=== PATIENT | female | born 1955 | race Caucasian/White ===

== ENCOUNTER 2019-11-10 13:16 | Outpatient (CLI) | payer OTHER, SELFPAY ==
--- NOTE | ~2019-11-10 | DEXA_ITS ---
BMD(1) Young-Adult(2) Age-Matched(3) Region (g/cm2) T-score Z-score WHO Classification L2 0.992 -1.8 -0.7 Osteopenia L3 0.954 -2.1 -1.0 Osteopenia L4 1.131 -0.7 0.4 Normal Trend: L1-L4 Change vs Change vs Measured Age BMD(1) Baseline Previous Date (years) (g/cm2) (%) (%) 1 - Statistically 68% of repeat scans fall within 1SD (+- 0.010 g/cm2 for AP Spine L1-L4) 2 - [place] (Combined NHANES (ages 20-30) / [place] (ages 20-40)) AP Spine Reference Population (v112) 3 - Matched for Age, Weight (females 25-100 kg), Ethnic Printed: 11/10/2019 1:53:18 PM (13.60)76:3.00:50.00:12.0 0.00:10.56 0.60x1.05 26.0:%Fat=47.8% 0.00:0.00 0.00:0.00 Filename: [id number] Scan Mode: Standard;OneScan 37.0 LocalView [id number] BMD(1) Young-Adult(2) Age-Matched(3) Region (g/cm2) T-score Z-score WHO Classification Neck 0.806 -1.7 -0.5 Osteopenia Total 0.854 -1.2 -0.4 Osteopenia Hip [place] Length Comparison (mm) BERNIE chart results unavailable Trend: Total Change vs Change vs Measured Age BMD(1) Baseline Previous Date (years) (g/cm2) (%) (%) 11/10/2019 64.8 0.854 baseline - 1 - Statistically 68% of repeat scans fall within 1SD (+- 0.012 g/cm2 for Left Femur Total) 2 - [place] (Combined NHANES (ages 20-30) / [place] (ages 20-40)) Femur Reference Population (v112) 3 - Matched for Age, Weight (females 25-100 kg), Ethnic 11 - World Health Organization - Definition of Osteoporosis and Osteopenia for Women: Normal = T-score at or above -1.0 SD; Osteopenia = T-score between -1.0 and -2.5 SD; Osteoporosis = T-score at or below -2.5 SD; (WHO definitions only apply when a young healthy Women reference database is used to determine T-scores.) Printed: 11/10/2019 1:53:18 PM (13.60)76:3.00:50.00:12.0 0.00:12.12 0.60x1.05 18.9:%Fat=34.0% 0.00:0.00 0.00:0.00 Neck Angle (deg)= 63 Filename: [id number] Scan Mode: Standard 37.0 uGy Sanghvi [id number] 17 - The 10-year probability of fracture may be lower than reported if the patient has received treatment. 18 - Major Osteoporotic Fracture: Clinical Spine, Forearm, Hip or Shoulder Printed: 11/10/2019 1:53:20 PM (13.60)76:3.00:50.00:12.0 0.00:12.12 0.60x1.05 18.9:%Fat=34.0% 0.00:0.00 0.00:0.00 Neck Angle (deg)= 63 Filename: [id number] Scan Mode: Standard 37.0 ?Gy FRAX v3.1 Sanghvi [id number] Dear Meir Ruth, Your patient Antonia Chavez completed a BMD test on 11/10/2019 using the Sanghvi DXA System (analysis version: 13.60) manufactured by [employer]. The following summarizes the results of our evaluation. PATIENT BIOGRAPHICAL: Name: Antonia Chavez Date: 1955 Height: 63.0 in. Gender: Female Exam Date: 11/10/2019 Weight: 176.0 lbs. Indications: Back Pain, Caffeinated drinks, , Family Hist.(Parent hip fracture), Hip Pain, History of Fracture (Adult), Family Hist. (Parent hip fracture) Fractures: Wrist Treatments: Calcium, Multivitamin, Vitamin D ASSESSMENT: The BMD measured at Femur Neck is 0.806 g/cm2 with a T-score of -1.7. This patient is considered osteopenic according to World Health Organiz
== END 2019-11-10 13:17 | disposition home or self-care (01) ==
LOC: CHSIMG 13:23
PROVIDERS: PCP Family Medicine; Visit Provider Family Medicine
DX: M85.80 Other specified disorders of bone density and structure, unspecified site (principal); Z78.0 Asymptomatic menopausal state
CPT/HCPCS: 77080

== ENCOUNTER 2021-12-26 09:59 | Outpatient (CLI) | payer MEDICARE, OTHER, SELFPAY ==
--- NOTE | ~2021-12-26 | XR_ITS ---
EXAM: XR lumbar spine min 4V DATE: 12/26/2021 10:34 HISTORY: back pain, TINGLING IN LEGS. KEELY. DR LUICO. FLEX/EX . COMPARISON: None available. FINDINGS: Cholecystectomy clips. Partially visualized right hip arthroplasty. 5 nonrib-bearing lumbar -type vertebral bodies. Pedicles intact. Normal vertebral body alignment. Concave endplate deformitie s as can be seen with osteoporosis. Multilevel disc space narrowing, severe at L5-S1 and mild at all remaining levels. Flowing ossification of the anterior longitudinal ligament inferior thoracic spine. Multilevel facet sclerosis and hypertrophy. Abdominal aortic calcification without evident aneurysm. No fracture or dislocation. IMPRESSION: Multilevel degenerative disc disease, severe at L5-S1. No dynamic listhesis. Multilevel f acet arthropathy. Reviewed, dictated and finalized at location K. IMPRESSION: Multilevel degenerative disc disease, severe at L5-S1. No dynamic l isthesis. Multilevel facet arthropathy.
== END 2021-12-26 10:00 | disposition home or self-care (01) ==
PROVIDERS: PCP Family Medicine; Visit Provider Neurological Surgery
DX: M47.817 Spondylosis without myelopathy or radiculopathy, lumbosacral region (principal); R20.2 Paresthesia of skin; I70.0 Atherosclerosis of aorta
CPT/HCPCS: 72110

== ENCOUNTER → 2022-01-12 09:19 | Outpatient (CLI) | payer MEDICARE, OTHER, SELFPAY ==
--- NOTE | ~2022-01-12 | MR_ITS ---
EXAMINATION: MR lumbar spine wo con DATE: 01/12/2022 10:31 INDICATION: Lumbar radiculopathy TECHNIQUE: Magnetic resonance imaging (MRI) of the lumbar spine was performed without intravenous con trast. Sequences included sagittal T2-weighted FSE, sagittal T2-weighted FS FSE, sagittal T1-weighted FSE, and axial T2-weighted FSE. COMPARISON: MRI dated 03/27/2021 FINDINGS: 4 mm retrolisthesis L5 on S1. Postoperative change of prior partial L5 laminectomy. Vertebral body he ights are normal. No significant change in a couple lesions in the L2 and L3 vertebral bodies which d emonstrate slightly lower attenuation than the surrounding marrow fat but still greater T1 signal int ensity than the discs and which saturates on T2 fat-saturated images suggests this represents focal r ed marrow. Mild fibrofatty degenerative endplate changes at the few of the lower lumbar vertebral bod ies . Moderate to severe disc height loss at L5-S1. Mild disc height loss at L1-L2 and L4-L5. The con us medullaris terminates at L1-L2. There is normal signal in the caudal spinal cord. Small region of cortical scarring at the right kidney with unchanged 7 mm T2 hyperintense right renal cyst. The follo wing disc levels are specifically discussed: T12-L1: Disc is minimally bulging. There is mild bilateral facet joint osteoarthritis. There is no ne ural foraminal stenosis. There is no central canal stenosis. L1-L2: Disc is mildly bulging. There is mild bilateral facet joint osteoarthritis. There is no neural foraminal stenosis. There is no central canal stenosis. L2-L3: The disc does not extend beyond the endplate margin. There is mild bilateral facet joint osteo arthritis. There is no neural foraminal stenosis. There is no central canal stenosis. L3-L4: Disc is mildly bulging with superimposed left foraminal zone disc protrusion. There is hypertr ophy of the ligamentum flavum. There is moderate left and moderate to severe right facet joint osteoa rthritis. There is old right and moderate left neural foraminal stenosis. There is mild central canal stenosis. L4-L5: Disc is bulging. There appears to been prior decompression at this level with resection of the ligamentum flavum and posterior epidural fat. There is moderate left and severe right facet joint os teoarthritis. There is moderate bilateral, right greater than left neural foraminal stenosis. There i s mild central canal stenosis. L5-S1: Disc is bulging with right foraminal zone annular fissure and disc extrusion with disc materia l extending a few millimeters cephalad and caudal to the level of the endplates. Posterior decompress ion with partial L5 laminectomy and resection of the right ligamentum flavum. There is moderate right and moderate to severe left facet joint osteoarthritis. There is right and mild to moderate left abdelrahman ral foraminal stenosis. There is mild central canal stenosis. IMPRESSION: 1. Moderate to severe lower lumbar spondylosis with change of prior posterior decompression at L4-L5 and L5-S1. Reviewed, dictated and finalized at location A. IMPRESSION: 1. Moderate to severe lower lumbar spondylosis with change of prior posterior d ecompression at L4-L5 and L5-S1.
== END ==
PROVIDERS: PCP Family Medicine
DX: M47.27 Other spondylosis with radiculopathy, lumbosacral region (principal); M48.07 Spinal stenosis, lumbosacral region
CPT/HCPCS: 72148

== ENCOUNTER 2022-03-16 08:28 | Outpatient (CLI) | payer MEDICARE, OTHER, SELFPAY ==
--- NOTE | ~2022-03-16 | DEXA_ITS ---
Bone Density Report Name: AFSHIN CAGLE Age: 66 Sex: Female Ethnicity: White Date of : 1955 Indication: postmenopausal; screening for osteoporosis; parental hip fracture; height loss; Referring Provider: LUCHO JEREZ Study: Bone densitometry was performed. Exam Date: March 16, 2022 Accession number: [id number] Bone Density: Region BMD T-score Z-score Classification AP Spine(L1-L4) 0.883 -1.5 0.4 Osteopenia Femoral Neck (Left) 0.596 -2.3 -0.7 Osteopenia Total Hip (Left) 0.706 -1.9 -0.6 Osteopenia World Health Organization criteria for BMD impression classify patients as: Normal (T-score at or above -1.0), Osteopenia (T-score between -1.0 and -2.5), or Osteoporosis (T-score at or below -2.5). 10-year Fracture Risk(1): Major Osteoporotic Fracture 20% Hip Fracture 3.1% Reported Risk Factors: [place] (), Neck BMD=0.596, BMI=30.8, parental fracture (1) FRAX(R) Version 3.08. Fracture probability calculated for an untreated patient. Fracture probability may be lower if the patient has received treatment. Clinical Information Provided by Patient: Parent has had a hip fracture Has used the following medications: Vitamin D, Calcium Patient maximum height was 64 Menopause Age: 41 No regular weight bearing exercise Drinks caffeinated beverages Onset of menses at age 12 Number of children 2 Impression: The patient has low bone mass, based on the Left Femoral Neck T-score. The patient has an estimated ten-year risk of hip fracture of 3.1% and an estimated ten-year risk of major fracture of 20%, based on the WHO FRAX algorithm. The patient has risk factors, including: parental hip fracture. Discussion: BONE DENSITY IS LOW AT ONE OR MORE SKELETAL SITES. THE PATIENT'S BMD AND CLINICAL RISK FACTORS CONTRIBUTE TO THIS PATIENT'S HIGH RISK OF FRACTURE. This patient's lowest T-score is low at one or more skeletal sites. It meets the World Health Organization's (WHO) criteria for ?low bone mass? (T-score between -1.0 and -2.5). The patient's 10-year risk of hip fracture and 10 year risk of a major osteoporotic fracture as calculated by FRAX exceeds the threshold where pharmacological therapy is recommended by the National Osteoporosis Foundation (NOF). However, all treatment decisions require clinical judgment and consideration of individual patient factors, including patient preferences, comorbidities, previous drug use, risk factors not captured in the FRAX model (e.g., frailty, falls, vitamin D deficiency, increased bone turnover, interval significant decline in bone density) and possible under or overestimation of fracture risk by FRAX. The patient should follow a healthful lifestyle (good nutrition with adequate calcium and vitamin D, and appropriate weight-bearing exercise). Follow-Up: Consider a repeat BMD and Vertebral Frac
== END 2022-03-16 08:29 | disposition home or self-care (01) ==
LOC: CHSIMG 08:30
PROVIDERS: PCP Family Medicine; Visit Provider Family Medicine
DX: Z78.0 Asymptomatic menopausal state (principal)
CPT/HCPCS: 77080

== ENCOUNTER 2022-10-15 20:22 | Emergency (ER) | payer MEDICARE, SELFPAY ==
--- NOTE | ~2022-10-15 | XR_ITS ---
EXAM: XR ankle RT min 3V, XR foot RT min 3V DATE: 10/15/2022 20:48 HISTORY: Right ankle pain, MEDIAL. STRIKING INJURY. . COMPARISON: None. FINDINGS: Normal mineralization. No fracture or dislocation. No lytic or blastic lesion. Mild midfoo t and tibiotalar degenerative change. Moderate Achilles and plantar enthesopathy. No erosion or perio steal change. Soft tissues within normal limits. IMPRESSION: No acute osseous finding in the right ankle or right foot. Reviewed, dictated and finalized at location K. IMPRESSION: No acute osseous finding in the right ankle or right foot.
[2022-10-15 20:23] VITALS: BP 102/65; PULSE 68; RESP 18; TEMP 36.6; O2SAT 98
[2022-10-15] MEDS: HYDROcodone/acetaminophen (*CRX) 5-325 MG TABLET 1 TAB PO (21:00)
--- NOTE | 2022-10-15 21:54 | ED.GENADULT ---
HPI - General Adult General Chief complaint: Extremity Injury, Lower Stated complaint: R Foot Injury Source: patient Mode of arrival: ambulatory Limitations: no limitations History of Present Illness HPI narrative: patient dropped a 24 x 30 in piece of wood on the top of her right foot complains of pain there and her ankle with bruising and swelling of the dorsum of her foot. . She has happened just prior to admission. She complains of not Deyanira put weight on the foot. Complains of a 10/10 pain with little tingling over the dorsal aspect of her foot. She says it hurts to move it. Denies any other injuries. Otherwise she is eating drinking stooling and voiding fine without any fever coughs shortness of breath sore throat runny nose rash or itching bleeding or bruising other than her foot lumps or bumps or swelling other than her right foot. Hurts to walk denies any problems hearing or seeing or talking. Denies any other complaints or any other pain. Denies any other injuries. Related Data Home Medications Medication Instructions Recorded Confirmed atorvastatin 40 mg tablet 40 mg PO DAILY 12/23/21 03/24/22 enalapril maleate 10 mg tablet 10 mg PO DAILY 12/23/21 03/24/22 hydrochlorothiazide 25 mg tablet 25 mg PO DAILY 12/23/21 03/24/22 naproxen 500 mg tablet 500 mg PO BID 12/23/21 03/24/22 sertraline 100 mg tablet 100 mg PO DAILY 12/23/21 03/24/22 Allergies Allergy/AdvReac Type Severity Reaction Status Date / Time nitrofurantoin Allergy Unknown Verified 10/15/22 20:25 [From Macrobid] Sulfa (Sulfonamide Allergy Hives Verified 03/24/22 09:02 Antibiotics) Review of Systems Review of Systems: All systems reviewed & are unremarkable except as noted in HPI and below PMFSH Past Medical History Medical History Anxiety Arthritis Depression H/O nephrolithotomy with removal of calculi High blood pressure High cholesterol Kidney stones Premature osteoporosis Surgical History Surgical History H/O neck surgery 2003 H/O shoulder replacement History of hip replacement Hx of cholecystectomy Previous back surgery 1999 Family History Family History Father Carcinoma of colon Heart disease Cerebrovascular accident Sibling Carcinoma of colon Mother Osteoporosis Thyroid disorder Dementia Social History Social History Smoking status: Never smoker Alcohol intake: current Alcohol use details: Rarely Substance use: never Exam Narrative: white female elderly mild distress complaining of right foot pain. Right lower extremity right hip and knee is normal. Right calf and cochran is nontender. Right ankle is mild tenderness laterally right foot is tender and bruised and mildly swollen on the dorsal central aspect of the dorsum of her foot. Is moderately tender. DP and PT pulses are +2 her ankle has full range of motion but hurts when she ranges of motion she has no tenderness in her toes. She is unable to put any weight on that foot. Course Vital Signs Vital signs: Vital Signs Temperature 36.6 C 10/15/22 20:23 Pulse Rate 68 10/15/22 20:23 Respiratory Rate 18 10/15/22 20:23 Blood Pressure 102/65 10/15/22 20:23 Pulse Oximetry 98 10/15/22 20:23 Oxygen Delivery Room Air 10/15/22 20:23 Temperature 36.6 C 10/15/22 20:23 Pulse Rate 68 10/15/22 20:23 Respiratory Rate 18 10/15/22 20:23 Blood Pressure 102/65 10/15/22 20:23 Pulse Oximetry 98 10/15/22 20:23 Oxygen Delivery Room Air 10/15/22 20:23 Medical Decision Making [facility] Narrative Medical decision making narrative: Patient was placed in room 5 history and physical was performed x-ray of her right foot and ankle was done which showed no fracture or dislocati
[2022-10-15] MEDS: KETOROLAC 30 MG/ML VIAL (*BKC) IM (22:23)
== END 2022-10-15 22:50 | disposition home or self-care (01) ==
PROVIDERS: Emergency Provider Emergency Medicine; PCP Family Medicine
DX: S90.31XA Contusion of right foot, initial encounter (principal); F41.9 Anxiety disorder, unspecified; F32.A Depression, unspecified; W20.8XXA Other cause of strike by thrown, projected or falling object, initial encounter
CPT/HCPCS: 73610; 73630; 96372; 99283; A9270; J1885; L2112

== ENCOUNTER 2023-08-07 08:17 | Outpatient (CLI) | payer MEDICARE, OTHER, SELFPAY ==
--- NOTE | 2023-08-07 08:36 | ECG_ITS ---
SEE SCANNED COPY FOR CONFIRMED REPORT. MTDD
[2023-08-07 09:12] LABS: Hematocrit 43.8 % (37.0-47.0); Hemoglobin 14.1 g/dL (12.0-15.0); Mean Corpuscular HGB Conc 32.2 g/dl (32-36); Mean Corpuscular Hemoglobin 30.4 pg (26-34); Mean Corpuscular Volume 94.4 fl (80-100); Mean Platelet Volume 9.6 fl (7.4-10.4); Platelet Count Result 257 k/mm3 (150-375); Red Blood Count 4.64 M/mm3 (4.2-5.4); Red Cell Distribution Width 12.5 % (11.5-14.5); White Blood Count 5.4 K/mm3 (4.5-10.0)
[2023-08-07 09:16] LABS: Appearance Urine Clear (Clear); Bacteria Urine None Seen /hpf; Bilirubin Urine Negative (Negative); Blood Urine Negative (Negative); Color Urine Yellow (Yellow); Glucose Urine UA Negative (Negative); Ketones Urine Negative (Negative); Leukocyte Esterase Ur 1+ LEU/UL (Negative); Nitrate Urine Negative (Negative); Non Pathogenic Casts 0-2; Protein Urine Negative (Negative); RBC Urine 0-2 /hpf (0-2); Specific Grav Ur 1.007 (1.001-1.035); Squamous Epithelial Cell Urine None Seen /hpf (Few); Urobilinogen Urine 0.2 mg/dL (<2.0)
[2023-08-07 09:23] LABS: Anion Gap 6 mmol/L (4-12); Blood Urea Nitrogen 17 mg/dL (7-17); Calcium 10.3 mg/dL (8.4-10.2); Carbon Dioxide 31 mmol/L (22-30); Chloride 105 mmol/L (98-107); Estimated Glomerular Filt Rate > 60; Glucose 95 mg/dL (65-110); INR 0.9; Potassium 3.9 mmol/L (3.4-5.0); Prothrombin Time 12.7 Seconds (11.1-14.7); Sodium 142 mmol/L (137-145)
[2023-08-07 09:29] LABS: Add Urine Microscopic? YES
== END 2023-08-07 08:18 | disposition home or self-care (01) ==
LOC: ANHSURGERY 08:25
PROVIDERS: PCP Family Medicine; Visit Provider Neurological Surgery
DX: Z01.818 Encounter for other preprocedural examination (principal); I10 Essential (primary) hypertension; M96.1 Postlaminectomy syndrome, not elsewhere classified
CPT/HCPCS: 36415; 80048; 81001; 85027; 85610; 85730; 87086; 87088; 93005

== ENCOUNTER 2023-08-08 06:10 | Day surgery (SDC) | payer MEDICARE, OTHER, SELFPAY ==
[2023-08-06 11:09] VITALS: BMI 29.1
--- NOTE | 2023-08-06 11:41 | PC.NURSE ---
Report to the Outpatient Waiting Room, entrance under the green pavilion located off [facility], at time __6:00AM on date __08/08/23 . Planned Procedure Time: ___7:30AM . Time changes happen often and if your time is changed the preop area will call you the afternoon before. - You and your visitor will be asked to self-screen and do not enter if you have any COVID symptoms. - A mask is optional within the hospital at this time. Patients may have clear liquids (water, carbonated beverages, clear teas, apple juice) until 3 hours prior to surgery with a maximum of 20 ounces. - No food from midnight until time of surgery. Take the following medications with a SIP of water the morning of surgery: ____SERTRALINE DO NOT STOP ANY OF YOUR OTHER PRESCRIPTION MEDICATIONS PRIOR TO SURGERY ?EXCEPT THE FOLLOWING Medications to discontinue per physician HOLD ALL VITAMINS/SUPPLEMENTS STARTING NOW(08/06/23) PER ANESTHESIA. Please no make-up, nail indonesian, hairspray, perfume, deodorant, or body powder the day of surgery. No jewelry (including any body piercings) or valuables the day of surgery, leave them at home. Please take a shower or bath the night before, or the morning of, surgery with an antibacterial soap. Wear comfortable, loose fitting clothing. - Jewelry must be removed prior to entering the operating room. Rings and piercings that are not removed may be cut off. - The hospital will not accept responsibility for valuables. - Please leave all valuables, including medications, at home the day of surgery. If you are going home after surgery, a licensed road train driver must drive you home. - NO public transportation without another adult if you receive anesthesia. - We recommend that an adult stay with you for 24 hours following discharge. - We also recommend that you do not drive, make important decision, drink alcoholic beverages, or take any drugs that were not prescribed by your health care provider for at least 24 hours after your discharge time. Follow any additional instructions given to you from your surgeon. If you or anyone in your household have experienced Covid symptoms in the past week, please notify your surgeon or the nurse liaison at the phone number below for possible testing. Telephone instructions given to ____PATIENT and asked if any additional questions and then verbalized understanding. Patient advised to call surgeon office or pre surgery nurse liaison [phone] if any additional questions.
[2023-08-08] VITALS (8 sets, daily range): BP systolic 117–136; BP diastolic 52–64; PULSE 69–86; RESP 12–19; TEMP 36.3; O2SAT 93–100
--- NOTE | ~2023-08-08 | XR_ITS ---
XR fluoroscopy no charge DATE: 08/08/2023 15:00 INDICATION: T9 laminectomy for spinal stimulator replacement TECHNIQUE: Single spot C-arm exposure of lower thoracic spine 29.9 seconds fluoroscopy time 0.2030 mGym2 Total DAP COMPARISON: None FINDINGS: Neurostimulator leads overlie the thoracic spinal canal. IMPRESSION: Neurostimulator leads overlie thoracic spinal canal Reviewed, dictated and finalized at [facility]. Reviewed, dictated and finalized at [facility].
[2023-08-08] MEDS: LACTATED RINGERS 1,000 ML 30 ML IV CONT ×2 (06:50→09:32)
--- NOTE | 2023-08-08 07:14 | WPDANESEPPF ---
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 Patient Data Age: 67 Gender: F Height: 1.63 m Weight: 77 kg Allergies Allergy/AdvReac Type Severity Reaction Status Date / Time nitrofurantoin Allergy Rash Verified 08/06/23 11:02 [From Macrobid] Sulfa (Sulfonamide Allergy Hives Verified 08/06/23 11:02 Antibiotics) Home Medications Medication Instructions Recorded Confirmed Type atorvastatin 40 mg tablet 40 mg PO DAILY 12/23/21 08/06/23 History enalapril maleate 10 mg tablet 10 mg PO DAILY 12/23/21 08/06/23 History hydrochlorothiazide 25 mg tablet 25 mg PO DAILY 12/23/21 08/06/23 History sertraline 100 mg tablet 100 mg PO QAM 12/23/21 08/06/23 History Powder Turmeric See Rx Instructions .Route .COMPLEX 08/06/23 08/06/23 History acetaminophen 500 mg tablet 1,000 mg PO Q6H PRN Pain 08/06/23 08/06/23 History (Acetaminophen Extra Strength) calcium carbonate 600 mg-vitamin 1 tablet PO DAILY 08/06/23 08/06/23 History D3 20 mcg (800 unit) chewable tablet (Caltrate 600 plus D) meclizine 25 mg tablet 25 mg PO BID PRN Dizziness Or 08/06/23 08/06/23 History Vertigo naproxen 500 mg tablet 500 mg PO BID PRN Pain 08/06/23 08/06/23 History pantoprazole 40 mg tablet,delayed 40 mg PO DAILY 08/06/23 08/06/23 History release Patient hx anesthesia problems: post op nausea/vomiting Family hx anesthesia problems: none Results Review: All pre-operative results and documents have been reviewed as part of the pre-operative evaluation. [facility] Past Medical History Medical History Anxiety Arthritis Depression H/O nephrolithotomy with removal of calculi High blood pressure High cholesterol Kidney stones Premature osteoporosis Surgical History Surgical History H/O neck surgery 2003 H/O shoulder replacement History of hip replacement Hx of cholecystectomy Previous back surgery 1999 Family History Family History Father Carcinoma of colon Heart disease Cerebrovascular accident Sibling Carcinoma of colon Mother Osteoporosis Thyroid disorder Dementia Social History Social History Smoking status: Never smoker Alcohol intake: current Alcohol use details: Rarely Substance use: never Substance use type: does not use Do You Feel Safe in your Home?: Yes Lack of Transportation: No Lack of Food: Never True Current Housing: I Have Housing Concerned About Future Housing: No Difficulty Paying Gas/Electric Bills: No Difficulty Paying for Meds: No Currently Unemployed: No Education: High School Diploma/GED Difficulty w/ Childcare or Family Care: No Living arrangements: with family Additional living arrangements comments: HUSB Spiritual care concerns: No Anes - Eval Final PreProcedure Day of Procedure 08/08/23 07:14 Patient weight: normal Heart: regular rate and rhythm Lungs: clear to auscultation Airway: Mallampati scale class II Neurological: alert and oriented Last oral intake: >/= 8 hours ASA classification: III Emergent: no Anesthetic plan: proceed Anesthesia type and monitoring: general ETT and standard monitoring Results Review: All pre-operative results and documents have been reviewed as part of the pre-operative evaluation. Informed Consent: The patient's anesthetic plan and its attendant risks and benefits were discussed with the patient/family/POA. Questions were solicited and answers provided to the satisfaction of the patient/family/POA.
--- NOTE | 2023-08-08 07:18 | WPDHPUPDATE1 ---
History and Physical Update Update Date/Time: 08/08/23 07:18 History and Physical has been reviewed, including an updated exam of the patient. There are NO changes in the patient's condition. Risks, benefits, and alternatives have been discussed and questions answered. Patient agrees to proceed with procedure.
[2023-08-08] MEDS: SCOPOLAMINE 1 MG PATCH 1 PATCH TRANSDERM (07:25)
[2023-08-08] MEDS: ceFAZolin 2 GM/D5W 50 ML 2 GM/50 ML BAG IVPB (07:34)
[2023-08-08] MEDS: BUPIVACAINE/EPINEPHRINE 0.5% 10 ML VIAL 30 ML INFILTRATE (08:14)
[2023-08-08] MEDS: VANCOMYCIN HCL 1,000 MG VIAL 500 MG TOPICAL (08:15)
--- NOTE | 2023-08-08 09:17 | PM.OP ---
Procedure Note - Brief Procedure Note - Brief Date of procedure: 08/08/23 failed back surgical syndrome Post-op diagnosis: Same Procedure performed: T9 laminotomy for placement of spinal cord stimulator Surgeon: Thais Navas MD Anesthesia: GETA Findings: Placement across T7 and T8 Estimated blood loss (mL): 25 Drains: No Packing: No Pathology: None sent Complications: None Condition: Stable Disposition: PACU
--- NOTE | 2023-08-08 09:19 | P.OP_ITS ---
Procedure Note - Detailed Date of Procedure 08/08/23 Pre-op Diagnosis failed back surgical syndrome Post-op Diagnosis Same Procedure Performed 1. T9 laminotomy for placement of spinal cord stimulator 2. Use of C-arm for fluoroscopy Surgeon Thais Navas MD [employer] Anesthesia General Indications Ms. Chavez is a 67-year-old female with history of previous L4-5 and L5-S1 laminectomies who has had continued and progressive back and bilateral lower extremity symptoms which have been unresponsive to physical therapy or multiple pain management injections.? She had a recent spinal cord stimulator trial with stimulation across the T8-9 disc space with 70% improvement in her symptoms. She is neurologically intact on physical exam.? MRI thoracic spine does not show significant stenosis that would limit placement of a stimulator. Given her improvement with the trial, I think it is reasonable to proceed with permanent implantation.? I think she is a reasonable candidate for spinal cord stimulator and have offered T9 laminotomy for placement of paddle electrode. We discussed risks including bleeding, pain, infection, weakness, paralysis, spinal cord damage, failure to relieve symptoms, and anesthetic complications. She gave written informed consent to proceed. Description of Procedure The patient was brought to the OR where general anesthesia was induced. The patient was turned prone onto the OR table with Rafael frame. All pressure points were padded. C-arm was used to plan the level of the thoracic incision. A left gluteal incision was also planned for the generator site. The surgical site was prepped and draped in usual sterile fashion. Perioperative antibiotics were given. Local anesthesia was injected into the planned incisions. A 10-blade scalpel was used to open the left gluteal incision. A bovie was used to create a subcutaneous pocket inferiorly. The pocket was packed with a wet Raytec. Next, the thoracic incision was opened with the scalpel, and the soft tissue was dissected with the bovie. The laminae were exposed bilaterally at T9. This was confirmed with the C-arm. A laminotomy was performed at the inferior portion of T9 with the [place], high-speed drill, and edenriseduard. No significant ligamentum flavum was noted at this level. The laminotomy opening was widened laterally. The paddle stimulator was then placed into the epidural space. Xrays confirmed appropriate positioning in line with the desired placement based on the trial. Anchors were placed into the leads which were attached to the muscle. The leads were tunneled to the gluteal incision. A final xray was obtained to ensure stable placement. The leads were connected to the generator which was then placed into the gluteal pocket. The generator was secured with a silk suture. All incisions were irrigated copiously. Hemostasis was ensured in the thoracic incision with the bipolar and Surgiflo. Stimulon beads were placed into both incisions. The fascia was closed with 0 vicryl. The dermis was closed with 2-0 and 3-0 vicryl. The dermis at the generator site was closed with 2-0 vicryl. The skin was closed in both incisions with 4-0 monocryl. Dermabond was then placed. The patient was returned supine, extubated, and transferred to PACU. Billing codes: 40846, 79937 Estimated Blood Loss 25 Drains No Packing No Pathology None sent Complications None Condition Stable Disposition PACU [facility] Billing Surgery - Charge Forward: Surgery Billing
[2023-08-08] MEDS: oxyCODONE HCL (*CRX) 5 MG TAB IR PO (10:40)
== END 2023-08-08 11:17 | disposition home or self-care (01) ==
PROVIDERS: PCP Family Medicine; Visit Provider Neurological Surgery
PROC: (CPT 63005; principal; 2023-08-08 07:30)
DX: M96.1 Postlaminectomy syndrome, not elsewhere classified (principal); I10 Essential (primary) hypertension; E78.00 Pure hypercholesterolemia, unspecified; F41.9 Anxiety disorder, unspecified; F32.A Depression, unspecified; M81.0 Age-related osteoporosis without current pathological fracture
CPT/HCPCS: 63685; 63655; 36415; 80048; 81001; 85027; 85610; 85730; 87086; 93005; 99199; A9270; J0690; J1100; J2250; J2405; J2704; J3010; J3370; J7120